=== PATIENT | female | born 2005 | race Caucasian/White ===

== ENCOUNTER 2024-09-11 18:21 | Emergency (ER) | payer OTHER, SELFPAY ==
[2024-09-11 18:24] VITALS: BP 138/100
--- NOTE | 2024-09-11 19:10 | ED.MUSCINJ ---
HPI-Injury
<DO Brent Harley Last Filed: 09/11/24 19:14>
General
Chief Complaint: Musculo-Skeletal Complaint
Source: patient and other
Exam Limitations: none
Time Seen by Provider: 09/11/24 18:30
Nursing documentation reviewed up to this point in time: agreed with
History of Present Illness-Injury
Initial Injury comments:
This a pleasant 18-year-old female presents emerged part with right thumb pain. She was at a [employer] at [facility] and was 'dressing up a horse for [employer] '. She states that this horse charged her and stepped on her
hand. 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 Reports no other injury. Denies head injury or loss of consciousness.
Phy Exam
<DO Brent Harley Last Filed: 09/11/24 19:14>
General Physical Exam
General Presentation: well appearing and no apparent distress
General age: appears stated age
General Skin: warm and dry
General Habitus: normal
General Mental: alert
General Hydration: appears well hydrated
Pulmonary Exam
Pulmonary Exam: no respiratory distress and no cough
Neurological Exam
Neurological Exam: alert
Musculoskeletal Exam
Musculoskeletal Exam: full ROM and other (Right-sided muscular atrophy secondary to sequela from a stroke)
Skin Exam
Skin Exam: other (Abrasion to the right thenar eminence)
Psychiatric Exam
Psychiatric Exam: normal mood/affect
Injury Course
<DO Brent Harley Last Filed: 09/11/24 19:14>
Orders/Labs/Results
Orders:
Orders
09/11/24 18:29
Hand, Right 3 View [CR Hand - Right Min 3 Views] Urgent
Comment:
Reason For Exam: injury
<WILDA Rios - Last Filed: 09/11/24 20:25>
Orders/Labs/Results
Orders:
Orders
09/11/24 18:29
Hand, Right 3 View [CR Hand - Right Min 3 Views] Urgent
Comment:
Reason For Exam: injury
Procedures
<WILDA Rios - Last Filed: 09/11/24 20:25>
Splinting/Sling Placement
Right Thumb:
Procedure completed by: Joyce Whitley
Pre-splint extermity exam: neurovascular intact
Type of splint: tanvir wrap and thumb spica
Splint material: fiberglass
Normal distal neurovascular exam?: Yes
Additional information:
Pt requested to be splinted in her resting position. Disability from stroke since .
<Nestor Alonso DO - Last Filed: 09/11/24 19:14>
*Critical Care Note
Total Time (30-74mins, 75-104mins- exclusive of procedures): Not Applicable
ED Attending Note
<Nestor Alonso DO - Last Filed: 09/11/24 19:14>
-
Portions of this chart may have been created with voice recognition software.� Occasional wrong word or��sound alike� substitutions may have occurred due to the inherent limitations of voice recognition software.
Discharge Plan
Departure
Patient Disposition: Home (Routine Discharge)
Date of Disposition: 09/11/24
Time of Disposition: 19:12
Patient with high blood pressure during this ER visit?: Yes
Discharge Problem:
Contusion of right thumb, Abrasion hand
Instructions: Muscle and Bone Pain (DC), Splint Care, Abrasions ED, Wound Care ED, BLOOD PRESSURE
Referrals:
Ben Kolb MD [Active] - Call in 1-3 days for appt
Activity Restrictions/Additional Instructions:
If pain persists repeat x-rays may be necessary.
It was a pleasure meeting you and taking part in your care. We hope for your continued healing and wellness.
Please read discharge instructions in their entirety. However, they are for general education and may not describe your exact diagnosis at discharge. Information on your ER visit and medical conditions were discussed with you along with appropriate
follow up information...
If indicated, please take your medications as instructed and indicated on discharge paperwork.
Please schedule a follow up appointment as directed. Call to schedule an appointment
Please return to the emergency department with ANY change in, persisting, or worsening of symptoms. If any of your symptoms do not improve, or persist, or become more severe within 6-12 hours, please return to the emergency department for further
care.
Please return to the emergency department if you develop a headache, neck pain/stiffness, fever greater than 100.4F, chest pain, shortness of breath, persistent nausea, vomiting, slurred speech, difficulty walking, numbness/tingling, weakness, signs
of infection or any other symptoms that are worrisome to you.
If you have any questions or concerns please do not hesitate to call the Hospital at or E-mail me directly at [email or web address]
Interventions
Interventions:
*Risk Screen - Suicide Last Done: 09/11/24 18:24
*General Assessment Last Done: 09/11/24 18:24
*Neglect/Abuse Screening Last Done: 09/11/24 18:24
*Nursing Disposition Last Done: 09/11/24 19:42
ED-Musculoskeletal Assessment Last Done: 09/11/24 18:54
Discharge Date and Time
Discharge Date/Time: 09/11/24 19:43
Print Language: JAPANESE
[2024-09-11 19:41] VITALS: BP 125/90
[2024-09-11 19:42] VITALS: BP 125/90
== END 2024-09-11 19:43 | disposition home or self-care (01) ==
LOC: EMR 18:21
PROVIDERS: EMERGENCY PHYSICIAN Student in an Organized Health Care Education/Training Program; PRIMARYCARE PHYSICIAN Pediatrics
DX: S60.011A Contusion of right thumb without damage to nail, initial encounter (principal); S60.511A Abrasion of right hand, initial encounter; W55.19XA Other contact with horse, initial encounter
CPT/HCPCS: 99283; 29125; 73130